=== PATIENT | female | born 1995 | race Caucasian/White ===

== ENCOUNTER 2023-06-08 21:34 | Outpatient (CLI) | payer MEDICAID ==
[~2023-06-08] VITALS: Ht 165.1 cm; Wt 92.1 kg
[2023-06-08 21:59] VITALS: BP 133/84; O2SAT 99
[2023-06-08] MEDS ORDERED: HOME MED LIST COMPLETE! XX SCH (22:05)
[2023-06-08 23:45] VITALS: BP 131/82
[2023-06-09 01:39] LABS: AMPHETAMINES URINE REFLEX NEGATIVE (NEGATIVE); BARBITURATES URINE REFLEX NEGATIVE (NEGATIVE); BENZODIAZEPINES URINE REFLEX NEGATIVE (NEGATIVE); CANNABINOIDS URINE REFLEX NEGATIVE (NEGATIVE); COCAINE METABOLITE URINE REFLE NEGATIVE (NEGATIVE); METHADONE URINE REFLEX NEGATIVE (NEGATIVE); OPIATES URINE REFLEX NEGATIVE (NEGATIVE); PHENCYCLIDINE URINE REFLEX NEGATIVE (NEGATIVE)
[2023-06-09 02:29] VITALS: BP 132/70
[2023-06-10] MEDS ORDERED: PRENTAB9 PO (10:39)
[2023-06-10] MEDS ORDERED: TUMS500C PO (10:39)
[2023-06-10] MEDS ORDERED: ACET-897 PO (10:39)
[2023-06-12] MEDS ORDERED: IBUP80TA PO (11:34)
== END 2023-06-09 02:37 | disposition home or self-care (01) ==
LOC: M LDO 21:34
PROVIDERS: ATTEND Advanced Practice Midwife
DX: O47.1 False labor at or after 37 completed weeks of gestation (principal); O09.33 Supervision of pregnancy with insufficient antenatal care, third trimester; Z3A.39 39 weeks gestation of pregnancy
CPT/HCPCS: 59025; 80307; 87081; G0463

== ENCOUNTER → 2024-09-29 | Outpatient (CLI) | payer OTHER ==
[~2024-09-29] MED LIST: ACET-897 PO; IBUP80TA PO; PRENTAB9 PO; TUMS500C PO
[2024-09-29 17:38] LABS: HEMATOCRIT 38.2 % (36.0-47.0); HEMOGLOBIN 13.3 g/dl (12.0-15.5); MEAN CORPUSCULAR HEMOGLOBIN 31.1 pg (27.0-33.0); MEAN CORPUSCULAR HGB CONC 34.8 g/dl (32.0-36.5); MEAN CORPUSCULAR VOLUME 89.5 fl (80.0-96.0); PLATELET COUNT, AUTOMATED 221 10^3/uL (150-450); RED BLOOD COUNT 4.27 10^6/uL (4.00-5.40); WHITE BLOOD COUNT 8.3 10^3/uL (4.0-10.0)
[2024-09-29 18:41] LABS: HEPATITIS C VIRUS ABY INDEX 0.15 INDEX (<0.8)
[2024-09-29 19:45] LABS: Trichomonas vaginalis (AMP) NOT DETECTED (NEGATIVE)
[2024-09-29 20:10] LABS: GC DNA AMPLIFICATION NEGATIVE (NEGATIVE)
[2024-09-30 12:28] LABS: HIV 1&2 SCREEN NEGATIVE (NEGATIVE)
== END ==
LOC: M PLALAB 15:37
PROVIDERS: ATTEND Nurse Practitioner Family
DX: Z34.80 Encounter for supervision of other normal pregnancy, unspecified trimester (principal); Z3A.00 Weeks of gestation of pregnancy not specified

== ENCOUNTER → 2024-11-24 | Outpatient (CLI) | payer OTHER | LOC: M WHC 08:19 | PROVIDERS: ATTEND Nurse Practitioner Family | DX: Z34.82 Encounter for supervision of other normal pregnancy, second trimester (principal); Z3A.19 19 weeks gestation of pregnancy ==

== ENCOUNTER → 2025-02-02 | Outpatient (CLI) | payer OTHER ==
[2025-02-02 14:01] LABS: GLUCOSE CHALLENGE TEST 1 HOUR 138 MG/DL (LESS THAN 140); HEMATOCRIT 31.7 % (36.0-47.0); HEMOGLOBIN 10.8 g/dl (12.0-15.5); MEAN CORPUSCULAR HEMOGLOBIN 30.9 pg (27.0-33.0); MEAN CORPUSCULAR HGB CONC 34.1 g/dl (32.0-36.5); MEAN CORPUSCULAR VOLUME 90.6 fl (80.0-96.0); PLATELET COUNT, AUTOMATED 178 10^3/uL (150-450); WHITE BLOOD COUNT 8.7 10^3/uL (4.0-10.0)
[2025-02-02 14:35] LABS: HIV 1&2 SCREEN NEGATIVE (NEGATIVE)
[2025-02-02 14:43] LABS: HEPATITIS C VIRUS ABY INDEX 0.08 INDEX (<0.8)
[2025-02-02 14:54] LABS: Trichomonas vaginalis (AMP) NOT DETECTED (NEGATIVE)
[2025-02-02 15:18] LABS: GC DNA AMPLIFICATION NEGATIVE (NEGATIVE)
== END ==
LOC: M PLALAB 10:12
PROVIDERS: ATTEND Obstetrics & Gynecology
DX: Z34.80 Encounter for supervision of other normal pregnancy, unspecified trimester (principal)

== ENCOUNTER → 2025-03-20 | Outpatient (REF) | payer OTHER | LOC: M SFHCWAGY 13:00 | PROVIDERS: ATTEND Obstetrics & Gynecology | DX: Z34.80 Encounter for supervision of other normal pregnancy, unspecified trimester (principal) ==

== ENCOUNTER → 2025-04-08 | Outpatient (CLI) | payer OTHER ==
[2025-04-08 17:52] LABS: PLATELET COUNT, AUTOMATED 197 10^3/uL (150-450)
== END ==
LOC: M PLALAB 15:27
PROVIDERS: ATTEND Obstetrics & Gynecology
DX: Z34.80 Encounter for supervision of other normal pregnancy, unspecified trimester (principal)

== ENCOUNTER 2025-04-20 11:55 | Inpatient (IN) | payer OTHER, MEDICAID ==
[2025-04-20] VITALS (18 sets, daily range): BP systolic 102–135; BP diastolic 51–93; O2SAT 98
[~2025-04-20] VITALS: Ht 165.1 cm; Wt 91.7 kg
[2025-04-20] MEDS ORDERED: METHYLERGONOVINE MALEATE 0.2 MG/ML 1 ML VIAL IM PRN (12:20)
[2025-04-20] MEDS ORDERED: CARBOPROST TROMETHAMINE 250 MCG/ML AMP IM PRN (12:20)
[2025-04-20] MEDS ORDERED: LIDOCAINE 1% MDV 20 ML VIAL INFIL PRN (12:20)
[2025-04-20] MEDS ORDERED: OXYTOCIN DRIP 30 UNITS in IV 1 EA IV PRN (12:20)
[2025-04-20] MEDS ORDERED: OXYTOCIN INJ 10UNITS/ML 1ML VIAL IM PRN (12:20)
[2025-04-20] MEDS ORDERED: HOME MED LIST COMPLETE! XX SCH (12:30)
[2025-04-20 12:59] LABS: PLATELET COUNT, AUTOMATED 208 10^3/uL (150-450)
[2025-04-20] MEDS: LR 1,000 ML IV SCH (13:05)
[2025-04-20] MEDS: OXYTOCIN DRIP 30 UNITS in IV 1 EA IV SCH (13:06)
[2025-04-20 14:02] LABS: HIV 1&2 SCREEN NEGATIVE (NEGATIVE)
[2025-04-20 14:10] LABS: HEPATITIS C VIRUS ABY INDEX < 0.02 INDEX (<0.8)
[2025-04-20] MEDS: TRANEXAMIC ACID INJection 1,000 MG in NS 100 ML IV PRN (19:50)
[2025-04-20] MEDS ORDERED: DIBUCAINE 1% OINTMENT 30 GM TOP PRN (20:35)
[2025-04-20] MEDS ORDERED: ANUSOL HC CREAM 30 GM TOP PRN (20:35)
[2025-04-20] MEDS ORDERED: ACETAMINOPHEN 500 MG TAB PO PRN (20:35)
[2025-04-20] MEDS ORDERED: IBUPROFEN 800 MG TAB PO PRN (20:35)
[2025-04-20] MEDS ORDERED: IBUPROFEN 600 MG TAB PO PRN (20:35)
[2025-04-20] MEDS ORDERED: ACETAMINOPHEN 325 MG TAB PO PRN (20:35)
[2025-04-20] MEDS ORDERED: DOCUSATE SODIUM 100 MG CAPSULE PO PRN (20:35)
[2025-04-20] MEDS ORDERED: MOM 30 ML SUSPENSION UDC PO PRN (20:35)
[2025-04-20] MEDS ORDERED: RHOGAM 300MCG (1500IU) INJ IM SCH (20:35)
[2025-04-21 06:00] VITALS: BP 115/48; O2SAT 97
[2025-04-21] MEDS: PRENATAL VITAMINS CHEWABLE TABLET PO SCH (09:55)
[2025-04-21 18:30] VITALS: BP 133/86; O2SAT 98
[2025-04-22 05:55] VITALS: BP 128/71; O2SAT 98
[2025-04-22] MEDS: TETANUS/DIPHTH/ACEL. PERTUSSIS 0.5 ML SYR IM.IMMUN ONE (08:52)
[2025-04-22] MEDS: MEASLES,MUMPS,RUBELLA VACCINE INJ (MMR-II) SC.IMMUN ONE (08:53)
== END 2025-04-22 12:00 | disposition home or self-care (01) | DRG 560 ==
LOC: M LDI 11:55 → M OBS 21:35
PROVIDERS: ADMIT Advanced Practice Midwife; ATTEND Advanced Practice Midwife
PROC: 10E0XZZ Delivery of Products of Conception, External Approach (ICD-10-PCS; principal; 2025-04-20)
PROC: 10907ZC Drainage of Amniotic Fluid, Therapeutic from Products of Conception, Via Natural or Artificial Opening (ICD-10-PCS; 2025-04-20)
PROC: 3E033VJ Introduction of Other Hormone into Peripheral Vein, Percutaneous Approach (ICD-10-PCS; 2025-04-20)
DX: O48.0 Post-term pregnancy (principal); Z37.0 Single live birth; Z3A.40 40 weeks gestation of pregnancy

== ENCOUNTER 2025-08-12 19:23 | Emergency (ER) | payer MEDICAID, OTHER ==
[~2025-08-12] VITALS: Ht 165.1 cm; Wt 82.2 kg
[2025-08-12 20:03] LABS: BASO # 0.0 10^3/uL (0.0-0.2); BASO % 0.2 % (0.0-1.0); EOS # 0.2 10^3/uL (0.0-0.5); EOS % 1.7 % (0.0-3.0); LYMPH # 2.8 10^3/uL (1.5-5.0); LYMPH % 31.3 % (24.0-44.0); MONO # 0.5 10^3/uL (0.0-0.8); MONO % 5.3 % (2.0-8.0); NEUTROPHILS # 5.5 10^3/uL (1.5-8.5); NEUTROPHILS % 61.3 % (36.0-66.0); PLATELET COUNT, AUTOMATED 240 10^3/uL (150-450)
[2025-08-12 20:31] LABS: C REACTIVE PROTEIN QUANTITATIV 2.03 MG/DL (<1.0); CALCIUM LEVEL 8.8 MG/DL (8.5-10.1); CARBON DIOXIDE LEVEL 27 MMOL/L (20-31); CHLORIDE LEVEL 106 MMOL/L (98-107); CREATININE FOR GFR 0.58 MG/DL (0.55-1.30); GLOMERULAR FILTRATION RATE > 90.0 (>60); POTASSIUM SERUM 3.7 MMOL/L (3.5-5.1); SODIUM LEVEL 142 MMOL/L (136-145)
[2025-08-12 20:32] LABS: HCG, SERUM QUALITATIVE NEGATIVE (NEGATIVE)
[2025-08-12] MEDS: LIDOCAINE 1% MDV 20 ML VIAL SC ONE (21:35)
[2025-08-12] MEDS ORDERED: CEPH500C PO (22:33)
[2025-08-12 22:47] VITALS: BP 124/82; TEMP 98.1; O2SAT 99
== END 2025-08-12 22:48 | disposition home or self-care (01) ==
LOC: M ED 19:23
DX: L02.413 Cutaneous abscess of right upper limb (principal)